=== PATIENT | male | born 1980 | race Caucasian/White ===

== ENCOUNTER 2025-08-07 21:23 | Inpatient (IN) | payer SELFPAY ==
[~2025-08-07] VITALS: Ht 167.6 cm; Wt 84.4 kg
[2025-08-07 21:30] VITALS: O2SAT 96
[2025-08-07] MEDS: ONDANSETRON HCL 4MG/2ML INJ IV ONE (22:00)
[2025-08-07 22:46] LABS: BASOPHILS % 0.9 % (0.0-2.0); EOSINOPHILS % 0.8 % (0.0-5.0); HEMATOCRIT. 40.8 % (42.0-52.0); HEMOGLOBIN. 12.9 g/dL (14.0-18.0); LYMPHOCYTES % 33.9 % (20.0-50.0); MEAN PLATELET VOLUME 7.0 fl (7.4-10.4); MONOCYTES % 5.3 % (2.0-8.0); NEUTROPHILS % 59.1 % (40.0-76.0); PLATELET 318 x1000/uL (130-400); RED BLOOD CELL COUNT 5.42 mill/uL (4.7-6.1); RED CELL DISTRIBUTION WIDTH 20.4 % (11.6-14.6)
[2025-08-07 22:59] LABS: CREATININE 0.4 mg/dL (0.6-1.3); UREA NITROGEN BLOOD 8 mg/dL (9-23)
[2025-08-07 23:00] LABS: TROPONIN I HIGH SENSITIVITY 11 ng/L (3.0-53)
[2025-08-07] MEDS: SODIUM CHLORIDE 0.9% 1,000 ML IV ONE (23:33)
[2025-08-08 00:48] LABS: *AMPHETAMINES SCREEN URINE NEGATIVE (NEGATIVE); *BARBITURATES SCREEN URINE NEGATIVE (NEGATIVE); *BENZODIAZEPINES SCREEN URINE NEGATIVE (NEGATIVE)
[2025-08-08 00:49] LABS: *COCAINE SCREEN URINE NEGATIVE (NEGATIVE); CANNABINOID URINE SCREEN NEGATIVE (NEGATIVE); ECSTASY MDMA SCREEN URINE NEGATIVE (NEGATIVE); METHADONE URINE SCREEN NEGATIVE (NEGATIVE); OPIATES URINE SCREEN NEGATIVE (NEGATIVE); PHENCYCLIDINE URINE SCREEN NEGATIVE (NEGATIVE)
[2025-08-08] MEDS: KCL 20MEQ/100ML PREMIX 100 ML IV SCH (01:00)
[2025-08-08 01:02] LABS: ASPARTATE AMINOTRANSFERASE 30 IU/L (<34)
[2025-08-08 01:03] LABS: BILIRUBIN DIRECT 0.1 mg/dL (<=3.0); BILIRUBIN TOTAL 0.4 mg/dL (0.1-1.0); PROTEIN TOTAL 7.0 g/dL (6.0-8.3)
[2025-08-08] MEDS: MAGNESIUM 1 G PREMIX 100 ML IV NR (02:07)
[2025-08-08 03:40] LABS: CLARITY URINE CLEAR (CLEAR); COLOR URINE YELLOW (YELLOW); GLUCOSE URINE NEGATIVE (NEGATIVE); KETONES URINE NEGATIVE (NEGATIVE); OCCULT BLOOD URINE TRACE (NEGATIVE); PH URINE 5.5 (4.5-8.0); PROTEIN URINE NEGATIVE (NEGATIVE); SPECIFIC GRAVITY URINE 1.003 (1.005-1.030)
[2025-08-08 03:41] LABS: LEUKOCYTE ESTERASE URINE NEGATIVE (NEGATIVE); NITRITE URINE NEGATIVE (NEGATIVE); UROBILINOGEN URINE 0.2 E.U./dL (0.2-1.0)
[2025-08-08 04:10] VITALS: BP 103/64; PULSE 74; RESP 14; TEMP 36.1956
[2025-08-08] MEDS ORDERED: IPRATROPIUM/ALBUTEROL 0.5-3(2.5)MG/3ML NEB HHN PRN (04:30)
[2025-08-08] MEDS ORDERED: ACETAMINOPHEN 325MG TABLET PO PRN ×2 (04:30)
[2025-08-08] MEDS ORDERED: CLONIDINE 0.1MG TABLET PO PRN (04:30)
[2025-08-08] MEDS ORDERED: DOCUSATE SODIUM 100MG CAPSULE PO PRN (04:30)
[2025-08-08] MEDS ORDERED: GUAIFENESIN 200MG/10ML SUGAR FREE UDC PO PRN (04:30)
[2025-08-08] MEDS ORDERED: MAGNESIUM/ALUMINUM HYDROXIDE/SIMETHICONE 30ML UDC PO PRN (04:30)
[2025-08-08] MEDS ORDERED: DEXTROSE 50% WATER 50ML SYRINGE IV PRN (05:30)
[2025-08-08] MEDS ORDERED: MVI, ADULT NO.1 10 ML, FOLIC ACID 1 MG, THIAMINE HCL 100 MG in SODIUM CHLORIDE 0.9% 1,0... IV SCH (06:00)
[2025-08-08] MEDS: SODIUM CHLORIDE 0.9% 1,000 ML IV SCH (06:16)
[2025-08-08 07:15] LABS: CREATININE 0.7 mg/dL (0.6-1.3); TROPONIN I HIGH SENSITIVITY 13 ng/L (3.0-53)
[2025-08-08 07:16] LABS: CREATINE KINASE MB FRACTION 3.6 ng/mL (0.5-3.6); UREA NITROGEN BLOOD 6 mg/dL (9-23)
[2025-08-08 07:18] LABS: PHOSPHORUS 3.3 mg/dL (2.5-4.9)
[2025-08-08 08:00] VITALS: BP 100/47; PULSE 72; RESP 18; TEMP 36.4; O2SAT 99
[2025-08-08 08:03] LABS: BACTERIA URINE NONE SEEN; RBC URINE NONE SEEN /hpf (0-2); WBC URINE NONE SEEN /hpf (0-2)
[2025-08-08 08:10] LABS: HEPATITIS C AB NON REACTIVE (Neg) (Negative)
[2025-08-08] MEDS: MVI, ADULT NO.1 10 ML, FOLIC ACID 1 MG, THIAMINE HCL 100 MG in SODIUM CHLORIDE 0.9% 1,0... IV SCH (09:57)
[2025-08-08] MEDS: FOLIC ACID 1MG TABLET PO SCH (09:57)
[2025-08-08] MEDS: THIAMINE HCL 100MG TABLET PO SCH (09:57)
[2025-08-08] MEDS: PANTOPRAZOLE SODIUM 40 MG/VIAL IV SCH (10:49)
[2025-08-08 12:00] VITALS: BP 110/57; PULSE 75; RESP 18; TEMP 36.3; O2SAT 99
[2025-08-08] MEDS ORDERED: VITA1CAP16 MT (12:55)
[2025-08-08 14:19] VITALS: BP 135/72; PULSE 76; RESP 21; TEMP 97.9
[2025-08-08 16:00] VITALS: BP 125/68; PULSE 75; RESP 19; TEMP 36.4; O2SAT 99
[2025-08-08 16:49] LABS: TROPONIN I HIGH SENSITIVITY 8 ng/L (3.0-53)
[2025-08-08 17:00] LABS: CREATINE KINASE MB FRACTION 1.6 ng/mL (0.5-3.6)
== END 2025-08-08 18:10 | disposition home or self-care (01) | DRG 52 ==
LOC: ER 21:23 → 6WST 08-08 01:56 → EDBEDREQDT 08-08 02:09 → EDBEDREQ 08-08 02:09 → EDBEDREQTM 08-08 02:09 → ENRESERV 08-08 02:41
PROVIDERS: ADMIT Internal Medicine; ATTEND Internal Medicine
DX: G92.8 Other toxic encephalopathy (principal); R57.1 Hypovolemic shock; E87.0 Hyperosmolality and hypernatremia; E87.20 Acidosis, unspecified; D50.9 Iron deficiency anemia, unspecified; E86.0 Dehydration; F10.129 Alcohol abuse with intoxication, unspecified; E16.2 Hypoglycemia, unspecified; E87.6 Hypokalemia; Y90.6 Blood alcohol level of 120-199 mg/100 ml
CPT/HCPCS: 36415; 71045; 80048; 80076; 80305; 80320; 81003; 82330; 82550; 82553; 82728; 83540; 83550; 83735; 84100; 84484; 85025; 86705; 87340; 93005; 96360; 99291; J2470; J3411; J3475; J3480; J3490; J7030; G0480